=== PATIENT | female | born 1955 | race Hispanic/Latino ===

== ENCOUNTER → 2023-12-23 | Outpatient (CLI) | payer OTHER | END | disposition home or self-care (01) | LOC: SHCH 13:48 | PROVIDERS: ATTEND Student in an Organized Health Care Education/Training Program | DX: R06.02 Shortness of breath (principal); R60.9 Edema, unspecified | CPT/HCPCS: 93306; 93970 ==

== ENCOUNTER → 2024-07-18 | Outpatient (CLI) | payer OTHER, MEDICARE | END | disposition home or self-care (01) | LOC: SHCH 08:12 | PROVIDERS: ATTEND Student in an Organized Health Care Education/Training Program | DX: R06.09 Other forms of dyspnea (principal) | CPT/HCPCS: 93306 ==

== ENCOUNTER → 2025-06-06 | Outpatient (CLI) | payer OTHER, MEDICARE ==
--- NOTE | 2025-06-06 18:50 | HMCIMG ---
EXAM: CT Cervical Spine Without Intravenous Contrast. CLINICAL HISTORY: 69 year old female with spondylosis without myelopathy or radiculopathy. TECHNIQUE: Axial computed tomography images of the cervical spine without intravenous contrast. Sagittal and coronal reformations performed. Dose reduction technique was used including one or more of the following: automated exposure control, adjustment of mA and kV according to patient size, and/or iterative reconstruction. CONTRAST: NONE; COMPARISON: None provided. FINDINGS: BONES: Osteopenia seen. Moderate degenerative changes at C4-C5. No acute fracture or focal osseous lesion. Bony alignment is anatomic. DISCS / DEGENERATIVE CHANGES: Moderate degenerative changes at C4-C5. No significant disc or facet degeneration otherwise. No significant central canal or neural foraminal stenosis. SOFT TISSUES: Bilateral apical pleural thickening seen. No prevertebral soft tissue swelling. VASCULATURE: Moderate atherosclerotic calcification of the bilateral carotid arteries. Follow-up with carotid ultrasound is recommended. IMPRESSION: 1. Moderate degenerative changes at C4-C5. 2. Moderate atherosclerotic calcification of the bilateral carotid arteries. Follow up with carotid ultrasound. /[place]
== END | disposition home or self-care (01) ==
LOC: RAH 14:12
PROVIDERS: ATTEND Family Medicine
DX: M47.812 Spondylosis without myelopathy or radiculopathy, cervical region (principal); I65.23 Occlusion and stenosis of bilateral carotid arteries; M25.78 Osteophyte, vertebrae; M31.0 Hypersensitivity angiitis
CPT/HCPCS: 72125